=== PATIENT | female | born 1995 | race African-American/Black ===

== ENCOUNTER 2019-11-26 10:39 | Emergency (ER) | payer OTHER ==
[2019-11-26 11:54] LABS: BILIRUBIN,URINE NEGATIVE (NEGATIVE); CLARITY,URINE CLEAR (CLEAR); GLUCOSE, URINE (UA) NEGATIVE (NEGATIVE); KETONES,URINE (UA) NEGATIVE (NEGATIVE); LEUKOCYTE ESTERASE, URINE NEGATIVE (NEGATIVE); NITRITE,URINE NEGATIVE (NEGATIVE); OCCULT BLOOD,URINE NEGATIVE (NEGATIVE); PH,URINE 5.5 PH (5.0-7.5); PROTEIN,URINE NEGATIVE (NEGATIVE); UROBILINOGEN,URINE 0.2 (NORMAL) E.U./dL (NORMAL)
[2019-11-26 11:55] LABS: HCG UR QUAL NEGATIVE
--- NOTE | 2019-11-26 12:32 | ED Physician Documentation ---
PD HPI FEMALE - Stated complaint Stated Complaint: FEMALE - Chief complaint Chief Complaint: General - History obtained from History obtained from: Patient - History of Present Illness Timing - onset: How many days ago (3-4) Timing - duration: Days (3-4) Timing - details: Gradual onset Pain level max: 0, 3 Pain level max: 2 Associated symptoms: No: Fever, Chest/shoulder pain, Abdominal pain, Back pain, Pelvic pain, Vaginal pain, Vaginal bleeding, Vaginal discharge, Genital sore/lesion, Dysuria, Urinary frequency, Hematuria Contributing factors: No: Similar symptoms before: Diagnosis (bacterial vaginitis) Recently seen: Not recently seen - Additional information Additional information: 24-year-old female states that she has white discharge. States it feels similar to prior episodes of bacterial vaginitis. Did have intercourse with a new partner a few weeks ago. Denies any STD exposure. Review of Systems Ten Systems: 10 systems reviewed and negative Constitutional: denies: Fever, Chills GI: denies: Vomiting, Diarrhea Skin: denies: Rash Musculoskeletal: denies: Neck pain, Back pain Neurologic: denies: Headache PD PAST MEDICAL HISTORY - Past Medical History Past Medical History: No - Past Surgical History Past Surgical History: No - Present Medications Home Medications: Ambulatory Orders Medication Instructions Recorded Confirmed Metronidazole [Flagyl] 500 mg PO BID #14 tablet 11/26/19 - Allergies Allergies/Adverse Reactions: Allergies Allergy/AdvReac Type Severity Reaction Status Date / Time No Known Drug Allergies Allergy Verified 11/26/19 10:46 - Social History Does the pt smoke?: No Does the pt drink ETOH?: No Does the pt have substance abuse?: No PD ED PE NORMAL - Vitals Vital signs reviewed: Yes - General General: Alert and oriented X 3, No acute distress, Well developed/nourished - HEENT HEENT: Moist mucous membranes - Neck Neck: Supple, no meningeal sign - Cardiac Cardiac: RRR, Strong equal pulses - Respiratory Respiratory: No respiratory distress, Clear bilaterally - Abdomen Abdomen: Soft, Non tender, Non distended - Female Female : Pt declined - Back Back: No CVA TTP, No spinal TTP - Derm Derm: Warm and dry - Neuro Neuro: Alert and oriented X 3 - Psych Psych: Normal mood, Normal affect Results - Vitals Vitals: Vital Signs - 24 hr 11/26/19 11/26/19 10:46 12:52 Temperature 36.8 C 36.8 C Heart Rate 61 60 Respiratory 16 16 Rate Blood Pressure 126/68 123/68 O2 Saturation 97 100 Oxygen O2 Source Room air - Labs Labs: Laboratory Tests 11/26/19 11/26/19 11/26/19 11:00 12:25 12:25 Urine Color YELLOW Urine Clarity CLEAR Urine pH 5.5 Ur Specific Belle >=1.030 H Urine Protein NEGATIVE Urine Glucose (UA) NEGATIVE Urine Ketones NEGATIVE Urine Occult Blood NEGATIVE Urine Nitrite NEGATIVE Urine Bilirubin NEGATIVE Urine Urobilinogen 0.2 (NORMAL) Ur Leukocyte Esterase NEGATIVE Ur Microscopic Review NOT INDICATED Urine Culture Comments NOT INDICATED Urine HCG, Qual NEGATIVE C. glabrata (PCR) UNRESOLVED A C. krusei (PCR) UNRESOLVED A Racheal species DNA UNRESOLVED A Chlam trachomat DNA PCR POSITIVE A N.gonorrhoeae DNA (PCR) NEGATIVE T. vaginalis (PCR) NEGATIVE UNRESOLVED A Bact Vaginosis (PCR) UNRESOLVED A PD MEDICAL DECISION MAKING - ED course Complexity details: reviewed results, considered differential, d/w patient ED course: Patient self swab, swabs were sent to the lab for bacterial vaginitis, trichomonas etc. Also sent for gonorrhea chlamydia testing. We will call her with the results later this afternoon. Patient refuses pelvic exam here. Patient counseled regarding signs and symptoms for which I believe and urgent re-evaluation would be necessary. Patient with good understanding of and agreement to plan and is comfortable going home at this time This document was made in part using voice recognition software. While efforts are made to proofread this document, sound alike and grammatical errors may occur. There was a problem running the bacterial vaginitis swab, I spoke with the patient at approximately 6:30 PM. We will treat her empirically for bacterial vaginitis. The gonorrhea and chlamydia swabs are still pending. Flagyl was sent to the pharmacy for her. Departure - Departure Disposition: 01 Home, Self Care Clinical Impression: Vaginal discharge Condition: Good Instructions: ED Vaginosis Bacterial Follow-Up: SAMANTHA SMITH MD [Primary Care Provider] - Within 1 week (if not better) Prescriptions: Metronidazole [Flagyl] 500 mg PO BID #14 tablet Comments: The swabs should take about an hour and a half to return. If you do not hear from us by approximately 3 PM, please call the emergency department for your results. [phone] Discharge Date/Time: 11/26/19 12:56
[2019-11-26 12:55] VITALS: BP 123/68
[2019-11-26 18:12] LABS: CANDIDA KRUSEI DNA UNRESOLVED (NEGATIVE)
[2019-11-26 18:13] LABS: CANDIDA GROUP DNA UNRESOLVED (NEGATIVE); TRICHOMONAS VAGINALIS DNA UNRESOLVED (NEGATIVE)
[2019-11-26 22:08] LABS: TRICHOMONAS VAGINALIS DNA NEGATIVE (NEGATIVE)
--- NOTE | 2019-11-26 23:40 | ED Physician Documentation ---
ED Addendum - Addendum Addendum: 11/26/19 23:40 Received a call from the lab. She is positive for chlamydia. We will have the nurses call her in the morning for azithromycin 1 g p.o. x1.
== END 2019-11-26 12:56 | disposition home or self-care (01) ==
LOC: ED 10:39
DX: A56.02 Chlamydial vulvovaginitis (principal)
CPT/HCPCS: 81001; 81003; 81025; 87086; 87491; 87591; 87661; 87801; 99283; 99284

== ENCOUNTER 2021-08-06 08:00 | Outpatient (CLI) | payer OTHER ==
[2021-08-06 23:41] LABS: BACTERIAL VAGINOSIS DNA NEGATIVE (NEGATIVE); CANDIDA GLABRATA DNA NEGATIVE (NEGATIVE); CANDIDA GROUP DNA NEGATIVE (NEGATIVE); CANDIDA KRUSEI DNA NEGATIVE (NEGATIVE); TRICHOMONAS VAGINALIS DNA NEGATIVE (NEGATIVE)
[2021-08-07 21:59] LABS: CHLAMYDIA TRACHOMATIS DNA NEGATIVE (NEGATIVE); NEISSERIA GONORRHOEAE DNA NEGATIVE (NEGATIVE); TRICHOMONAS VAGINALIS DNA NEGATIVE (NEGATIVE)
== END 2021-08-06 23:59 | disposition home or self-care (01) ==
LOC: LAB.N 08:00
PROVIDERS: ATTEND Nurse Practitioner
DX: N89.8 Other specified noninflammatory disorders of vagina (principal)
CPT/HCPCS: 87491; 87591; 87661; 87801